=== PATIENT | female | born 1930 | race Caucasian/White ===

== ENCOUNTER 2017-06-15 10:57 | Inpatient (IN) ==
--- NOTE | 2017-06-15 11:25 | PROVIDER DOCUMENTATION ---
HPI-General Adult - General Chief Complaint: Weakness Stated Complaint: weakness Time Seen by Provider: 06/15/17 11:02 Source: patient Allergies/Adverse Reactions: Patient Allergies Allergy/AdvReac Type Severity Reaction Status Date / Time No Known Allergies Allergy Verified 06/15/17 11:22 Home Medications: Home Medication List Medication Instructions Recorded Confirmed Last Taken Type Aspirin 325 mg PO DAILY 05/04/17 06/15/17 05/03/17 07:00 History Calcium Carbonate/Vitamin D3 1 tab PO DAILY 05/04/17 06/15/17 05/03/17 07:00 History [Calcium 600 + Vit D Tablet] Hydrochlorothiazide 25 mg PO DAILY 05/04/17 06/15/17 05/03/17 07:00 History Hydrocodone/Acetaminophen [[place] 1 each PO Q6H PRN #20 tablet 05/04/17 06/15/17 Unknown Rx 5-325 Tablet] Levothyroxine [Synthroid] 125 mcg PO DAILY 05/04/17 06/15/17 05/03/17 07:00 History Lisinopril [Zestril] 40 mg PO DAILY 05/04/17 06/15/17 05/03/17 07:00 History PRAVAstatin [Pravachol] 40 mg PO QHS 05/04/17 06/15/17 05/03/17 20:00 History Amlodipine [Norvasc] 5 mg PO DAILY 06/15/17 06/15/17 Unknown History Pioglitazone HCl [Actos] 45 mg PO DAILY 06/15/17 06/15/17 Unknown History - History of Present Illness -Gen Adult Nature of Presenting Problems: PT STS SHE FELL ABOUT 3 WEEKS AGO AND FX HER LT HUMERUS. STS DR. MAC HAS BEEN MANAGING THIS, BUT SINCE THEN SHE HAS HAD INCREASED WEAKNESS, DECREASED APPETITE, AND SOME LEAKAGE OF URINE. DENIES FEVER, NAUSEA, CP, OR SOB. Location of Pain/Injury: reports: none Associated Symptoms: reports: genitourinary problems, loss of appetite, weakness . denies: chest pain, diarrhea, dizziness, fever/chills, nausea, shortness of breath Review of Systems - Adult - REVIEW OF SYSTEMS - ADULT Constitutional: reports: no symptoms reported. denies: fever Eyes: reports: no symptoms reported. denies: blurred vision Ears, Nose, Mouth & Throat: reports: no symptoms reported Cardiovascular: reports: no symptoms reported. denies: chest pain, palpitations , syncope Respiratory: reports: no symptoms reported. denies: dyspnea on exertion, shortness of breath Gastrointestinal: reports: no symptoms reported. denies: abdominal pain, diarrhea, nausea, vomiting Genitourinary: reports: see HPI, incontinence Musculoskeletal: reports: see HPI, muscle weakness Integumentary: reports: no symptoms reported Neurological: reports: no symptoms reported. denies: dizziness/vertigo, headache/migraines Psychiatric: reports: no symptoms reported Endocrine: reports: no symptoms reported Hematologic/Lymphatic: reports: no symptoms reported Allergic/Immunologic: reports: no symptoms reported All Other Systems: Reviewed and Negative Past History - Adult - PAST MEDICAL HISTORY-ADULT Review of Records: reports: Nursing Assessment Review, Medications Reviewed, Social history reviewed & non-contributory. Major Childhood Illnesses: reports: denies history Cardiovascular: reports: HTN, hyperlipidemia Respiratory: reports: denies history Gastrointestinal: reports: denies history Obstetrical/Gynecological: reports: denies history Genitourinary: reports: denies history Musculoskeletal: reports: denies history, orthopedic injury (LT HUMERUS FX) Neurological: reports: denies history Psychiatric: reports: denies history Endocrine/Immune: reports: Diabetes Diabetes Type: Type 2 Diabetes controlled by:: PO Meds Physical Exam-General - PHYSICAL EXAM-ADULT Initial Vital Signs Reviewed: Yes - CONSTITUTIONAL General Appearance: appears well, alert, no apparent distress - EYES Eyes: PERRL/EOMI, pink conjunctivae - HEAD, EARS, NOSE, MOUTH & THROAT HENMT: moist mucous membranes - RESPIRATORY Respiratory: chest non-tender, lungs clear, normal breath sounds, no pleuratic chest pain, no respiratory distress, no accessory muscle use - CARDIOVASCULAR Cardiovascular: regular rate, rhythm - GASTROINTESTINAL (ABDOMEN) Abdominal Exam: normal bowel sounds, non tender, soft, no organomegaly, no pulsatile mass - MUSCULOSKELETAL Back Exam: normal inspection, no CVA tenderness, no vertebral tenderness Extremity: normal range of motion, normal inspection, normal capillary refill - SKIN Integumentary: normal color, normal turgor, warm/dry - NEUROLOGIC Neurologic: grossly normal, no motor/sensory deficits - PSYCHIATRIC Psych/Mental Status: normal mood/affect, oriented x 3 Progress - PLAN OF CARE/RESULTS Progress/Plan/Lab Results: Vital Signs - 8 hr 06/15/17 11:11 06/15/17 11:14 Temperature 98.4 F Pulse Rate 105 H 103 H Respiratory Rate 11 L 13 Blood Pressure 156/72 156/72 O2 Sat by Pulse Oximetry 96 Orders Category Date Time Status Cardiac Monitoring DIRECTED Care 06/15/17 11:10 Active Saline Loc NOW Care 06/15/17 11:10 Active CHEST-PORTABLE [RAD] Stat Exams 06/15/17 11:10 Ordered CBC WITH ELECTRONIC DIFF [HEME] Stat Lab 06/15/17 11:10 Uncollected CK PROFILE [SP CHEM] Stat Lab 06/15/17 11:10 Uncollected COMPREHENSIVE METABOLIC PANEL [CHEM] Stat Lab 06/15/17 11:10 Uncollected LACTATE, PLASMA [CHEM] Stat Lab 06/15/17 11:10 Uncollected PROTIME WITH INR [COAG] Stat Lab 06/15/17 11:10 Uncollected PTT [COAG] Stat Lab 06/15/17 11:10 Uncollected TROPONIN T Stat Lab 06/15/17 11:10 Uncollected URINALYSIS W/POSS RFLX CULT-1 [URINALYSIS] Stat Lab 06/15/17 11:10 Uncollected Pulse Oximetry Stat Oth 06/15/17 11:10 Active EKG [EKG] Stat Ther 06/15/17 11:10 Ordered Result Diagrams: 06/15/17 11:46 06/15/17 11:46 - XRAY 1 XRAY Study: Chest Impression: Abnormal, See EMR Report XRAY Interpretation: TINY LT PLEURAL EFFUSION.-DR. WELSH - CONSULTS/PCP/HOSPITALIST Notification #1 *Consult/PCP/Hospitalist*: JEFF CHANCE FOR DR. HIGHTOWER Time Discussed: 13:40 Consult Disposition: Admit Departure - Departure Date of Disposition Decision: 06/15/17 Time of Disposition Decision: 13:42 DIAGNOSIS: Weakness Urinary tract infection Qualifiers: Urinary tract infection type: site unspecified Hematuria presence: without hematuria Qualified Code(s): N39.0 - Urinary tract infection, site not specified Disposition: ADMITTED INPATIENT 09 Certified Medical Emergency: Emergent Condition: Good - Critical Care Note This patient required my direct & personal management of CC.: No Attestation - Physician/ NATHAN Attestation Patient care was provided by Advanced Practice Provider:: Yes Advanced Practice Provider:: Leslie Duque Advanced Practice Provider documentation review:: The Mid-level provider documentation, treatment plan and medical decision making was reviewed by the physician who agrees with all treatment and medical decision making by the MLP. The physician spent face to face time with patient:: No Advanced Practice Provider documentation review:: Supervising physician onsite and consulted in the evaluation and care of this patient. The physician did not have a face to face encounter with the patient.
--- NOTE | 2017-06-15 11:28 | Diag Imaging Result Doc PS360 ---
EXAM: CHEST-PORTABLE HISTORY: WEAKNESS TECHNIQUE: Portable upright AP COMPARISON: 05/04/2017 FINDINGS: The lungs are well expanded. The heart is not enlarged. The vessels are not distended. No pneumonia. There is a tiny left pleural effusion. Old injury to the left humeral neck. IMPRESSION: Tiny left pleural effusion. Electronically signed by Kenneth Kulkarni 06/15/2017 11:25 AM
[2017-06-15 11:53] LABS: MANUAL DIFF NEEDED? NO
[2017-06-15 11:55] LABS: BASO% 0.2 % (0.0-0.8); EOS# 0.03 X1000 (0.0-0.7); EOS% 0.2 % (0.0-10.0); HEMATOCRIT 37.6 % (37.0-47.0); HEMOGLOBIN 12.6 g/dL (12.0-16.0); IMM GRAN# 0.08 X1000 (0.0-0.04); IMM GRAN% 0.6 % (0.0-0.5); LYMPH# 1.63 X1000 (1.2-3.4); LYMPH% 12.8 % (20.5-51.1); MCH 30.3 PG (27-31); MCHC 33.5 g/dL (33-37); MCV 90.4 FL (81-99); MONO# 1.21 X1000 (0.11-0.59); MONO% 9.5 % (1.7-9.3); MPV 9.5 FL (7.4-10.4); NEUT% 76.7 % (42.2-75.2); PLT 308 X1000 (130-400); RBC 4.16 XMIL (4.2-5.4)
[2017-06-15 12:06] LABS: INR 1.08; PROTIME 11.4 Seconds (9.2-11.7); PTT 25.4 Seconds (22.0-36.0)
[2017-06-15 12:18] LABS: AGAP 15; ALKALINE PHOSPHATASE 162 U/L (32-104); BUN 15 mg/dL (8-22); CALCIUM 8.7 mg/dL (8.8-10.2); CHLORIDE 100 mmol/L (98-107); CK PROFILE 82 U/L (24-173); COSMO 278; GOT 31 U/L (10-30); GPT 26 U/L (10-36); POTASSIUM 3.6 mmol/L (3.5-5.1); SODIUM 138 mmol/L (136-145); TCO2 23 mmol/L (25-35); TOTAL BILIRUBIN 0.83 mg/dL (0.20-1.00); TOTAL PROTEIN 7.1 g/dL (6.3-8.3)
[2017-06-15 12:24] LABS: URINE SOURCE CATH
[2017-06-15 12:27] LABS: BILIRUBIN URINE NEGATIVE (NEGATIVE); BLOOD URINE TRACE (NEGATIVE); COLOR ORANGE; GLUCOSE URINE NEGATIVE (NEGATIVE); LEUKOCYTES URINE LARGE (NEGATIVE); NITRITE URINE POSITIVE (NEGATIVE); PH URINE 6.5; PROTEIN URINE 70 mg/dL (NEGATIVE); SP GRAVITY URINE 1.012; TURBIDITY URINE TURBID (CLEAR); UROBILINOGEN URINE NORMAL (NORMAL)
[2017-06-15 12:28] LABS: URINE MICRO REVIEW NEEDED? YES
[2017-06-15 12:34] LABS: UR EPITHELIAL CELLS <10 /HPF (<10); URINE BACTERIA 4+ /HPF; URINE CULTURE NEEDED? YES; URINE RBC <10 /HPF (<10); URINE WBC TNTC /HPF (<10)
--- NOTE | 2017-06-15 12:34 | EKG Report ---
Test Performed on : 06/15/2017 11:21:55 AM Test Reason : AMS Blood Pressure : / mmHG Vent. Rate : 099 BPM Atrial Rate : 099 BPM P-R Int : 136 ms QRS Dur : 082 ms QT Int : 342 ms P-R-T Axes : 015 -30 009 degrees QTc Int : 438 ms Normal sinus rhythm. Left axis deviation Voltage criteria for left ventricular hypertrophy Nonspecific ST abnormality Abnormal ECG When compared with ECG of 04-MAY-2017 06:48, T wave amplitude has decreased in Anterior leads Unconfirmed Result
[2017-06-15 12:37] LABS: URINE CASTS NONE SEEN; URINE CRYSTALS NONE SEEN; URINE SMALL ROUND CELLS NONE SEEN
--- NOTE | 2017-06-15 13:27 | ED EKG INTERP ---
This chart was entered by Ene Eisenberg Scribe, acting as scribe for Janice Hong MD. EKG Interpretation - EKG Time of EKG reading by physician:: 11:21 EKG Read and Signed by:: Janice Hong EKG Interpretation (*Must complete 3 of following elements*): Abnormal ( nonspecific ST abnormality) Rate: 99 Rhythm: normal sinus rhythm Comments: left axis deviation; voltage criteria for left ventricular hypertrophy Attestation - Physician/ NATHAN Attestation Patient care was provided by Advanced Practice Provider:: Yes Advanced Practice Provider:: Leslie Duque Advanced Practice Provider documentation review:: The Mid-level provider documentation, treatment plan and medical decision making was reviewed by the physician who agrees with all treatment and medical decision making by the P. The physician spent face to face time with patient:: No Advanced Practice Provider documentation review:: Supervising physician onsite and consulted in the evaluation and care of this patient. The physician did not have a face to face encounter with the patient. This chart was documented by the indicated scribe, (Ene Eisenberg Scribe) and accurately reflects the services I performed and decisions made by riHal W. Larry, MD, as attested by the provider's signature.
[2017-06-15] MEDS ORDERED: ZOFRAN IV PRN (14:45)
[2017-06-15] MEDS ORDERED: TYLENOL PO PRN (14:45)
[2017-06-15] MEDS ORDERED: NORCO-5 PO PRN (14:45)
[2017-06-15] MEDS ORDERED: NS 1,000 ML IV ONE (14:45)
[2017-06-15] MEDS: ROCEPHIN 1 GM in NS 50 ML IV SCH (18:38)
[2017-06-15] MEDS: GLUCOPHAGE PO SCH (18:38)
--- NOTE | 2017-06-15 19:46 | HISTORY AND PHYSICAL ---
CHIEF COMPLAINT: Weakness. HISTORY OF PRESENT ILLNESS: This is an 86-year-old female with history of hypertension, hypothyroidism presenting with weakness. Essentially she fell about 3 weeks ago and broke her left humerus. Dr. Mccracken has been following her however she has had increasing weakness, decreased appetite, urinary incontinence. She denies any abdominal pain, nausea, vomiting. No dysuria. She has had intermittent UTIs in the past. Basically her who is also elderly I think in his 90s he was just unable to get her up from the bathroom to the bed where she had previously been able to do that and he is unable to take care of her at home. She came in for evaluation. She was found to have a significant UTI with some leukocytosis and was admitted for a complicated urinary tract infection and is really unable to get up and around. PAST MEDICAL HISTORY: 1. Hypertension. 2. Hypothyroidism. 3. Type 2 diabetes. 4. Dyslipidemia. PAST SURGICAL HISTORY: She has had a hysterectomy 1969. SOCIAL HISTORY: No tobacco, alcohol. FAMILY HISTORY: No significant family history. ALLERGIES: No known drug allergies. MEDICATIONS: She is on Actos 45, Pravachol 40, Zestril 40, Synthroid 125, [place] p.r.n., hydrochlorothiazide 25, calcium daily, aspirin 325 daily, Norvasc 5 daily. REVIEW OF SYSTEMS: Ten systems reviewed otherwise negative. PHYSICAL EXAMINATION: VITAL SIGNS: Blood pressure was 143/112, heart rate of 98, respiratory rate 17, temperature 98.3 degrees, 94% on room air. GENERAL: Well-developed female in no acute distress. HEAD: Normocephalic, atraumatic. EYES: Pupils equal, round, reactive to light. Extraocular movements were intact. EAR/NOSE/THROAT: Had moist mucous membranes. NECK: Supple. CARDIOVASCULAR: Regular rate, rhythm, no murmurs, gallops or rubs. PULMONARY: Exam bilateral breath sounds. Clear to auscultation. GI: Soft, nontender, nondistended. Bowel sounds are positive. EXTREMITIES: No clubbing or cyanosis. LYMPHATIC: She had 2+ pedal edema. NEUROLOGIC: Nonfocal. LABORATORY DATA: White count 12, hemoglobin and hematocrit 12 and 37, platelets 308,000. Coagulations normal, basic was normal. AST 31. Urine showed positive nitrite, large leukocytes too numerous to count, less than 4 squames, 10 squames, 4+ bacteria. ASSESSMENT: This is 86-year-old female with progressive weakness, failure to thrive. 1. Complicated urinary tract infection. We will continue empiric antibiotics. I am going to go ahead and continue Rocephin, pursue urine culture, gentle hydration. 2. Diabetes. I am worried with her swelling about Actos, also possibly her Norvasc. We will switch her to metformin to see if we can encourage weight loss. Follow blood sugars. Check an A1c. Continue sliding scale. 3. Hypertension still not well controlled. We will continue regular medications and follow. DISPOSITION: Pending her clinical status we will get PT if she is unable to ambulate and she will be at high risk at home for falls, decompensation. I think she already has a stage II decubitus ulcer on her buttock area which we will get wound care to manage and follow closely. cc: Maggi Mccabe MD
[2017-06-15] MEDS: NORVASC PO SCH (22:30)
[2017-06-15] MEDS: HUMULIN R SUBQ SCH (22:30)
[2017-06-15] MEDS: PRAVACHOL PO SCH (22:30)
[2017-06-15] MEDS: MYCOSTATIN POWDER TOP SCH (22:30)
[2017-06-16] MEDS: HUMULIN R SUBQ SCH ×4 (06:02→21:45)
[2017-06-16 06:42] LABS: HEMATOCRIT 35.7 % (37.0-47.0); HEMOGLOBIN 11.7 g/dL (12.0-16.0); MCH 30.5 PG (27-31); MCHC 32.8 g/dL (33-37); MPV 9.6 FL (7.4-10.4); RBC 3.84 XMIL (4.2-5.4)
[2017-06-16 06:51] LABS: AGAP 12; BUN 14 mg/dL (8-22); CALCIUM 7.6 mg/dL (8.8-10.2); CHLORIDE 102 mmol/L (98-107); COSMO 277; POTASSIUM 3.8 mmol/L (3.5-5.1); SODIUM 138 mmol/L (136-145); TCO2 24 mmol/L (25-35)
[2017-06-16 07:03] LABS: HEMOGLOBIN A1C 5.1 % (4.8-6.0)
[2017-06-16] MEDS ORDERED: ACTOS PO SCH (08:00)
[2017-06-16] MEDS: PRINIVIL PO SCH (08:37)
[2017-06-16] MEDS: SYNTHROID PO SCH (08:37)
[2017-06-16] MEDS: HYDROCHLOROTHIAZIDE PO SCH (08:37)
[2017-06-16] MEDS: CALTRATE 600 + D PO SCH (08:37)
[2017-06-16] MEDS: NORVASC PO SCH (08:37)
[2017-06-16] MEDS: MYCOSTATIN POWDER TOP SCH ×2 (08:38→20:36)
[2017-06-16] MEDS: GLUCOPHAGE PO SCH ×2 (08:38→17:00)
[2017-06-16] MEDS ORDERED: VANCOMYCIN IV PER PHARMACY MISC SCH (09:15)
--- NOTE | 2017-06-16 10:33 | PROGRESS NOTE ---
DATE: 06/16/2017 SUBJECTIVE: This patient states that she is feeling better. She does not have any specific complaint today. We have a positive urine culture that showed gram-positive cocci. She has been on ceftriaxone and for now, will start this patient on vancomycin, and I will follow up the urine culture and sensitivity. WBC is still elevated at 12. No changes compared with yesterday. She does have a decubitus ulcer at the level of the right gluteal area close to the midline, wound care on board. Also, she has generalized weakness, and I will continue with physical therapy. OBJECTIVE: Vital Signs: Temperature 98.1 degrees, pulse 91, respiratory rate 20, blood pressure 143/69, oxygen saturation 97% on room air. HEENT: Head normocephalic. No trauma. PERRLA. Neck: Supple. No JVD. No masses. Central trachea. Chest: Clear to auscultation. No wheezing. No rales. Abdomen: Soft, nontender, nondistended. No hepatosplenomegaly. Extremities: 2+ lower extremity edema. No clubbing. No cyanosis. Neurological: The patient is alert and oriented x3. No focal deficits. Back: She has an ulcer, probably stage II at the level of the left gluteal area close to the midline. LABORATORY: WBC 12.6, hemoglobin 11.7, hematocrit 35.7, platelet 244,000. Sodium 138, potassium 3.8, chloride 102, bicarbonate 24, BUN 14, creatinine 0.6, glucose 105, calcium 7.6. Hemoglobin A1c 5.1. ASSESSMENT AND PLAN: 1. Complicated urinary tract infection. I will continue with ceftriaxone. But since this patient has a positive urine culture that showed gram-positive cocci, I will add vancomycin to her medications. Will monitor. 2. Type 2 diabetes. Actos has been stopped, and she has been placed on metformin. Her blood sugar is controlled. Continue with the same management. Hemoglobin A1c is 5.1. 3. Hypertension, well controlled. Continue to monitor. 4. Hypothyroidism. Continue with levothyroxine 125 mcg p.o. daily. 5. Dyslipidemia. Continue with statins. 6. Decubitus ulcer at the level of the right gluteal area close to the midline. Continue with wound care. cc: Sixto Cai MD
[2017-06-16] MEDS ORDERED: VANCOMYCIN 1.2 GM in NS 250 ML IV ONE (11:00)
[2017-06-16] MEDS: ROCEPHIN 1 GM in NS 50 ML IV SCH (17:00)
[2017-06-16] MEDS: PRAVACHOL PO SCH (20:36)
[2017-06-17] MEDS: HUMULIN R SUBQ SCH ×2 (06:07→12:05)
[2017-06-17 06:48] LABS: MANUAL DIFF NEEDED? NO
[2017-06-17 07:02] LABS: IMM GRAN# 0.04 X1000 (0.0-0.04); IMM GRAN% 0.4 % (0.0-0.5)
[2017-06-17 07:20] LABS: AGAP 15; BUN 15 mg/dL (8-22); CALCIUM 7.6 mg/dL (8.8-10.2); CHLORIDE 100 mmol/L (98-107); COSMO 279; SODIUM 139 mmol/L (136-145); TCO2 24 mmol/L (25-35)
[2017-06-17 07:41] VITALS: BP 120/48
[2017-06-17] MEDS ORDERED: KLOR-CON PO ONE (08:06)
[2017-06-17] MEDS: PRINIVIL PO SCH (08:10)
[2017-06-17] MEDS: NORVASC PO SCH (08:10)
[2017-06-17] MEDS: HYDROCHLOROTHIAZIDE PO SCH (08:10)
[2017-06-17] MEDS: MYCOSTATIN POWDER TOP SCH (08:11)
[2017-06-17] MEDS: CALTRATE 600 + D PO SCH (08:11)
[2017-06-17] MEDS: SYNTHROID PO SCH (08:11)
[2017-06-17] MEDS: GLUCOPHAGE PO SCH (08:11)
[2017-06-17 08:23] LABS: BASO% 0.1 % (0.0-0.8); EOS# 0.05 X1000 (0.0-0.7); EOS% 0.4 % (0.0-10.0); HEMATOCRIT 35.6 % (37.0-47.0); HEMOGLOBIN 11.8 g/dL (12.0-16.0); LYMPH# 1.85 X1000 (1.2-3.4); LYMPH% 16.5 % (20.5-51.1); MCH 30.7 PG (27-31); MCHC 33.1 g/dL (33-37); MCV 92.7 FL (81-99); MONO% 8.9 % (1.7-9.3); MPV 10.4 FL (7.4-10.4); NEUT% 74.1 % (42.2-75.2); PLT 233 X1000 (130-400); RBC 3.84 XMIL (4.2-5.4)
--- NOTE | 2017-06-17 11:21 | DISCHARGE SUMMARY ---
ADMISSION DATE: 06/15/2017 DISCHARGE DATE: 06/17/2017 ADDENDUM REPORT: The patient was seen and examined by me [id number], all the lab work and vital signs were reviewed as well. On my physical examination, this patient has no major changes. She is not complaining of any pain at this moment. She is tolerating p.o. and ambulating with physical therapy. Apparently, she has chronic weakness and she has been like this at home. Actually, she told me that her helps her to stand up and walk to the bathroom. We offered a rehab center for this patient and, actually, she has been accepted but she refused to go to [facility], so she is going home with home health and physical therapy at home. Also, we will try to get a walker for this patient. She has a positive urine culture that showed gram-positive cocci, MSSA, that is sensitive to nitrofurantoin so I will start this patient on this medication for 5 more days. She already received 2 days here of IV antibiotics. I agree with the assessment and plan, please for more information see the complete discharge summary. cc: Sixto Cai MD
[2017-06-17] MEDS ORDERED: MACRODANTIN PO SCH (14:00)
--- NOTE | 2017-06-18 08:27 | DISCHARGE SUMMARY ---
ADMISSION DATE: 06/15/2017 DISCHARGE DATE: 06/17/2017 CONSULTATIONS: None. PERTINENT PROCEDURE: Chest x-ray showed tiny left pleural effusion. CONSULTATION: None. DISCHARGE DIAGNOSES: 1. Complicated urinary tract infection grew out Staphylococcus aureus. Patient being discharged on Macrodantin. 2. Type 2 diabetes. Actos has been stopped. She has been placed on metformin. Blood sugars have been controlled. Hemoglobin A1c is 5.1. 3. Hypertension, controlled. 4. Hypothyroidism. Continue Synthroid. 5. Dyslipidemia. Continue statin. 6. Decubitus ulcer at the level of the right gluteal area close to the midline. Continue wound care. HOSPITAL COURSE: Ms. Soto is an 86-year-old female with a history of hypertension, hypothyroidism, presenting with weakness. She fell 3 weeks prior, broke her left humerus. Dr. Mccracken has been following her. However, she had increasing weakness, decreased appetite, and urinary incontinence, abdominal pain, nausea, and vomiting. No dysuria. She has had intermittent UTIs in the past. Her , who is elderly and in his 90 days, was unable to help get her up to the bathroom from the bed, so she came in for evaluation. She was found to have a significant UTI with leukocytosis, and was admitted for a complicated urinary tract infection and started on empiric antibiotics and gentle hydration. Her Actos was switched to metformin, given her swelling. PT was consulted to evaluate the patient, and get her ambulating as well as wound care for present on arrival stage II decubitus ulcer on her buttock. Wound care recommend a Triad cream and frequent repositioning. She is tolerating p.o. as well as ambulation with physical therapy. We have offered rehab to the patient. She has actually been accepted, but she does refuse to go, so she will be going home with home health and physical therapy as well as get her a walker. Her urine culture was gram- positive cocci and SSA sensitive to nitrofurantoin. So she will continue this medication for 5 more days, and she is appropriate for discharge home today. VITAL SIGNS: Temperature is 98 degrees, heart rate 80, respirations 18, blood pressure 120/40, O2 is 100% on room air. DISCHARGE DIET: Diabetic. DISCHARGE MEDICATIONS: 1. Norvasc 5 mg p.o. b.i.d. 2. Aspirin 325 mg p.o. daily. 3. Calcium 600 plus vitamin D 1 tab p.o. daily. 4. Hydrochlorothiazide 25 mg p.o. daily. 5. [place] 5/325 one each p.o. q.6 hours p.r.n. 6. Synthroid 125 mcg p.o. daily. 7. Zestril 40 mg p.o. daily. 8. Glucophage 500 mg p.o. b.i.d. 9. Macrodantin 100 mg p.o. q.6 hours. 10. Pravachol 40 mg p.o. at bedtime. FOLLOWUP: Ms. Rocha is being discharged home with home health and physical therapy as well as a walker. Again, she has been offered rehab and accepted to [facility]. However, she has refused. We will recommend to continue Triad cream on her present on arrival decubitus ulcer. She has chosen [facility], and her walker will be from [facility], and she is to continue to follow up with Dr. Mccracken as well as her PCP, Maggi Mccabe. She can return to the ED for any worsening of symptoms. Time discharging this patient 35 minutes Dictated by ELAINE Ivy for Sixto Cai MD cc: MD Maggi Chand MD [facility]
[2017-06-18] MEDS ORDERED: VANCOMYCIN 1 GM/NS 1 GM/250 ML IVPB IV SCH (11:00)
== END 2017-06-17 12:48 | disposition home health service (06) ==
LOC: ED 10:57 → SUATTDRO 14:34 → 3N 14:34
PROVIDERS: ATTEND Internal Medicine